=== PATIENT | male | born 1965 | race Caucasian/White ===

== ENCOUNTER 2018-02-11 09:44 | Emergency (ER) | payer MEDICAID ==
[2018-02-11] MEDS ORDERED: Ondansetron 4 MG/2 ML SDV IVPUSH ONE (09:51)
[2018-02-11] MEDS ORDERED: Sodium Chloride 0.9% 1,000 ML IV SCH (10:00)
[2018-02-11] MEDS: Ketorolac 30 MG/ML SDV IVPUSH ONE ×2 (10:09→10:11)
[2018-02-11] MEDS ORDERED: HYDROmorphone 1 MG/ML Syringe IVPUSH ONE (10:39)
--- NOTE | 2018-02-11 10:43 | EDM.PDOC ---
ED HPI GENERAL MEDICAL PROBLEM - General Chief Complaint: Genitourinary Problem Stated Complaint: KIDNEY PAIN Time Seen by Provider: 02/11/18 10:40 Source of Information: Reports: Patient History Limitations: Reports: No Limitations - History of Present Illness INITIAL COMMENTS - FREE TEXT/NARRATIVE: pt arrived with severe rt flank pain. He has had about 3 episodes in the last 3 days of severe flank pain. He feels like it is probably sitting just outside of the bladder. Onset: Today, Sudden Duration: Hour(s): Location: Reports: Abdomen, Other ( rt flank) Associated Symptoms: Reports: Nausea/Vomiting Right Flank Pain Score (Numeric/FACES): 10 - Related Data Allergies Allergy/AdvReac Type Severity Reaction Status Date / Time Penicillins Allergy Other Verified 03/20/16 10:58 Past Medical History Genitourinary History: Reports: Renal Calculus Social & Family History - Tobacco Use Smoking Status *Q: Unknown Ever Smoked ED ROS GENERAL - Review of Systems Review Of Systems: See Below Constitutional: Reports: No Symptoms HEENT: Reports: No Symptoms Respiratory: Reports: No Symptoms Cardiovascular: Reports: No Symptoms Endocrine: Reports: No Symptoms GI/Abdominal: Reports: Abdominal Pain : Reports: Flank Pain, Other (pt had a sudden onser of rt flank pain. ) Musculoskeletal: Reports: No Symptoms ED EXAM, RENAL/ - Physical Exam Exam: See Below Text/Narrative:: pt arrived with severe rt flank pain. He has a history of kidney stones. Exam Limited By: No Limitations General Appearance: Alert, Anxious, Severe Distress Ears: Normal TMs Nose: Normal Inspection Throat/Mouth: Normal Inspection Head: Atraumatic Neck: Normal Inspection Respiratory/Chest: No Respiratory Distress Cardiovascular: Regular Rate, Rhythm GI/Abdominal: Soft, Non-Tender (Male) Exam: Deferred Rectal (Males) Exam: Deferred Back Exam: CVA Tenderness (R) Extremities: Normal Inspection Neurological: Alert, Oriented, Normal Cognition Psychiatric: Anxious, Other (pt is very uncomfortable. ) Course - Vital Signs Last Recorded V/S: Last Vital Signs Temp 35.9 C 02/11/18 09:46 Pulse 64 02/11/18 09:46 Resp 18 02/11/18 09:46 BP 104/58 L 02/11/18 09:46 Pulse Ox 99 02/11/18 09:46 - Orders/Labs/Meds Labs: Laboratory Tests 02/11/18 02/11/18 Range/Units 10:01 10:01 WBC 10.6 (4.5-11.0) K/uL RBC 5.46 (4.30-5.90) M/uL Hgb 16.6 H (12.0-15.0) g/dL Hct 46.9 (40.0-54.0) % MCV 86 (80-98) fL MCH 30 (27-31) pg MCHC 35 (32-36) % Plt Count 354 (150-400) K/uL Neut % (Auto) 49 (36-66) % Lymph % (Auto) 38 (24-44) % Mckinley % (Auto) 10 H (2-6) % Eos % (Auto) 2 (2-4) % Baso % (Auto) 1 (0-1) % Sodium 141 (140-148) mmol/L Potassium 3.6 (3.6-5.2) mmol/L Chloride 106 (100-108) mmol/L Carbon Dioxide 20 L (21-32) mmol/L Anion Gap 18.6 H (5.0-14.0) mmol/L BUN 13 (7-18) mg/dL Creatinine 1.1 (0.8-1.3) mg/dL Est Cr Clr Drug Dosing 75.11 mL/min Estimated GFR (MDRD) > 60 (>60) Glucose 132 H (74-106) mg/dL Calcium 8.9 (8.5-10.1) mg/dL Total Bilirubin 0.5 (0.2-1.0) mg/dL AST 17 (15-37) U/L ALT 31 (12-78) U/L Alkaline Phosphatase 77 (46-116) U/L Total Protein 7.3 (6.4-8.2) g/dL Albumin 3.8 (3.4-5.0) g/dL Globulin 3.5 (2.3-3.5) g/dL Albumin/Globulin Ratio 1.1 L (1.2-2.2) Meds: Medications Discontinued Medications Generic Name Dose Route Start Last Admin Trade Name Freq PRN Reason Stop Dose Admin Hydromorphone HCl 1 mg 02/11/18 10:39 02/11/18 11:00 Dilaudid IVPUSH 02/11/18 10:40 1 mg ONETIME ONE Administration Sodium Chloride 1,000 mls @ 999 mls/hr 02/11/18 10:00 02/11/18 10:07 Normal Saline IV 999 mls/hr ASDIRECTED ANNA Administration Ketorolac Tromethamine 30 mg 02/11/18 09:51 02/11/18 10:11 Toradol IVPUSH 02/11/18 09:52 30 mg ONETIME ONE Administration Ondansetron HCl 4 mg 02/11/18 09:51 02/11/18 10:09 Zofran IVPUSH 02/11/18 09:52 4 mg ONETIME ONE Administration - Re-Assessments/Exams Free Text/Narrative Re-Assessment/Exam: 02/14/18 08:25 The cat scan showd a stone in the bladder. His pain was gone so it was assumed that his stone passed. Departure - Departure Time of Disposition: 12:08 Disposition: Home, Self-Care 01 Condition: Fair Clinical Impression: Ureteral calculus, right - Discharge Information Instructions: Kidney Stones, [id number] Referrals: PCP,None [Primary Care Provider] - Forms: ED Department Discharge Care Plan Goals: stone passed when in cat scan, push fluids. torodol 10 mg q6h as needed for pain #8
--- NOTE | 2018-02-11 11:17 | CT ---
CT abdomen and pelvis without contrast. Total DLP 684 Findings: Atelectasis within the lung bases. Scarring or atelectasis within the lingula. Liver within normal limits. Gallstones. Pancreas within normal limits. Spleen within normal limits. Hypodensity r ight kidney posteriorly up to 1 cm was evident on prior CT examination 12/08/2010. A simple cyst could be confirmed with ultrasound. Tiny punctate calyceal stone on the right. No definite hydronephrosis. There is inflammation about the right proximal ureter. Mild right hydroureter.. There is a stone with in the bladder measuring 3 mm. No obstructing radiopaque right renal stones. No hydronephrosis on the left. There is some fatty infiltration of the jones of the right-sided colon which could potentially suggest prior inflammation. Air-filled appendix on the right demonstrates no inflammation. No eviden ce for enlarged adenopathy. A few probable bone islands. Impression: 1. Mild right hydroureter and mild inflammation about the proximal right ureter. This is most suggest reece a recently passed stone which is within the bladder. If concern for infection correlate with urin alysis.
== END 2018-02-11 12:00 | disposition home or self-care (01) ==
LOC: JP.ED 09:44
DX: N20.1 Calculus of ureter (principal); Z88.0 Allergy status to penicillin
CPT/HCPCS: 36415; 74176; 80053; 85025; 96361; 96374; 96375; 99284; J1170; J1885; J2405; J7040

== ENCOUNTER 2018-04-29 03:27 | Emergency (ER) | payer MEDICAID ==
[2018-04-29] MEDS ORDERED: Proparacaine 0.5% Ophth Soln 15 ML Bottle ONE (03:34)
[2018-04-29] MEDS ORDERED: Ibuprofen 600 MG Tab PO ONE (04:04)
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
[2018-04-29] MEDS ORDERED: Proparacaine 0.5% Ophth Soln 15 ML Bottle EYEBOTH STA (04:11)
[2018-04-29] MEDS ORDERED: Proparacaine 0.5% Ophth Soln 15 ML Bottle EYEBOTH ONE (04:20)
== END 2018-04-29 04:23 | disposition home or self-care (01) ==
LOC: JP.ED 03:27
DX: H16.133 Photokeratitis, bilateral (principal); F17.210 Nicotine dependence, cigarettes, uncomplicated; Z88.5 Allergy status to narcotic agent; Z88.0 Allergy status to penicillin; Z79.899 Other long term (current) drug therapy; W89.0XXA Exposure to welding light (arc), initial encounter
CPT/HCPCS: 99283; A9270

== ENCOUNTER 2020-03-19 16:19 | Emergency (ER) | payer SELFPAY ==
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
== END 2020-03-19 17:02 | disposition home or self-care (01) ==
LOC: JP.ED 16:19
DX: R55 Syncope and collapse (principal); S80.212A Abrasion, left knee, initial encounter; Z88.5 Allergy status to narcotic agent; Z88.0 Allergy status to penicillin; Z79.899 Other long term (current) drug therapy; X58.XXXA Exposure to other specified factors, initial encounter
CPT/HCPCS: 99282; 99283

== ENCOUNTER 2023-01-18 14:26 | Emergency (ER) | payer MEDICAID ==
[2023-01-18] MEDS ORDERED: Acetaminophen/HYDROcodone 325-5 MG Tab PO ONE (15:06)
== END 2023-01-18 15:52 | disposition home or self-care (01) ==
LOC: JP.ED 14:26
DX: S40.011A Contusion of right shoulder, initial encounter (principal); M25.511 Pain in right shoulder; Z88.5 Allergy status to narcotic agent; Z88.0 Allergy status to penicillin; Z72.0 Tobacco use; W18.30XA Fall on same level, unspecified, initial encounter
CPT/HCPCS: 73010; 73030; 99283; A9270

== ENCOUNTER 2023-06-02 13:40 | Emergency (ER) | payer SELFPAY ==
[2023-06-02 14:03] LABS: HEMATOCRIT 47.1 % (38.4-49.7); HEMOGLOBIN 16.5 g/dL (12.9-16.9); MEAN CORPUSCULAR HEMOGLOBIN 30.4 pg (31.6-35.5); MEAN CORPUSCULAR VOLUME 86.9 fL (81.4-99.0); RED BLOOD CELL COUNT 5.42 M/uL (4.14-5.76); WHITE BLOOD CELL COUNT,WBC 9.6 K/uL (3.2-11.0)
[2023-06-02 14:19] LABS: PROTHROMBIN TIME 10.6 sec (9.2-10.6)
[2023-06-02 14:29] LABS: A/G RATIO 1.1 (1.2-2.2); ALANINE AMINOTRANSFERASE,ALT 47 U/L (12-78); ALBUMIN 3.8 g/dL (3.4-5.0); ALKALINE PHOSPHATASE 85 U/L (46-116); ASPARTATE AMNIOTRANSFERASE,AST 18 U/L (15-37); BILIRUBIN TOTAL 0.8 mg/dL (0.2-1.0); BLOOD UREA NITROGEN,BUN 13 mg/dL (7-18); CALCIUM 9.4 mg/dL (8.5-10.1); CARBON DIOXIDE,CO2 26 mmol/L (21-32); CHLORIDE,CL 103 mmol/L (100-108); CREATININE 1.2 mg/dL (0.8-1.3); EST CRCL DRUG DOSING (CG) 65.79 mL/min; ESTIMATED GFR 72 mL/min (>60); GLUCOSE RANDOM 90 mg/dL (74-106); POTASSIUM,K 4.2 mmol/L (3.6-5.2); PRO B-TYPE NATRIUR PEPT,BNPPRO 48 pg/mL (5-125); PROTEIN TOTAL,TP 7.3 g/dL (6.4-8.2); SODIUM,NA 138 mmol/L (140-148)
[2023-06-02 14:31] LABS: ANION GAP 13.2 mmol/L (5.0-14.0); TROPONIN I HIGH SENSITIVITY < 4.0 pg/mL (<=60.3)
[2023-06-02] MEDS ORDERED: HYDROmorphone 0.5 MG/0.5 ML Syringe IVPUSH ONE (14:31)
[2023-06-02] MEDS ORDERED: Sodium Chloride 0.9% 1,000 ML IV SCH (14:45)
== END 2023-06-02 14:49 | disposition left against medical advice (07) ==
LOC: EDBD → MERGE 13:40 → JP.ED 13:40
DX: R07.9 Chest pain, unspecified (principal); F17.210 Nicotine dependence, cigarettes, uncomplicated; Z88.5 Allergy status to narcotic agent; Z88.0 Allergy status to penicillin
CPT/HCPCS: 36415; 80053; 83605; 83690; 83880; 84484; 85027; 85379; 85610; 99285

== ENCOUNTER 2023-10-23 17:21 | Emergency (ER) | payer MEDICAID ==
[2023-10-23] MEDS: Sodium Chloride 0.9% 1,000 ML IV SCH ×2 (17:30→19:05)
[2023-10-23 17:45] LABS: BASOPHILS PERCENT AUTO 1.4 % (0.1-1.3); EOSINOPHILS ABSOLUTE AUTO 0.24 K/uL (0.00-0.40); EOSINOPHILS PERCENT AUTO 3.2 % (0.0-5.4); HEMATOCRIT 38.9 % (38.4-49.7); IMMATURE GRAN PERCENT AUTO 0.1 % (0.0-0.7); LYMPHOCYTES ABSOLUTE AUTO 3.32 K/uL (0.8-3.3); LYMPHOCYTES PERCENT AUTO 44.9 % (11.4-47.7); MEAN CORPUSCULAR HEMOGLOBIN 29.8 pg (31.6-35.5); MEAN CORPUSCULAR HGB CONC 33.4 g/dL (31.6-35.5); MEAN CORPUSCULAR VOLUME 89.2 fL (81.4-99.0); MONOCYTES ABSOLUTE AUTO 0.74 K/uL (0.20-0.90); NEUTROPHILS ABSOLUTE AUTO 2.99 K/uL (1.0-7.6); NEUTROPHILS PERCENT AUTO 40.4 % (40.0-78.1); PLATELET COUNT,PLT 247 K/uL (130-375); RED BLOOD CELL COUNT 4.36 M/uL (4.14-5.76); WHITE BLOOD CELL COUNT,WBC 7.4 K/uL (3.2-11.0)
[2023-10-23 17:46] LABS: IMMATURE GRAN ABSOLUTE AUTO 0.01 K/uL (0.00-0.23)
[2023-10-23 18:14] LABS: A/G RATIO 1.2 (1.2-2.2); ALANINE AMINOTRANSFERASE,ALT 33 U/L (12-78); ALBUMIN 3.2 g/dL (3.4-5.0); ALKALINE PHOSPHATASE 59 U/L (46-116); ANION GAP 12.1 mmol/L (5.0-14.0); ASPARTATE AMNIOTRANSFERASE,AST 17 U/L (15-37); BILIRUBIN TOTAL 0.2 mg/dL (0.2-1.0); BLOOD UREA NITROGEN,BUN 16 mg/dL (7-18); CALCIUM 7.9 mg/dL (8.5-10.1); CARBON DIOXIDE,CO2 23 mmol/L (21-32); CHLORIDE,CL 106 mmol/L (100-108); CREATININE 1.3 mg/dL (0.8-1.3); EST CRCL DRUG DOSING (CG) 60.03 mL/min; ESTIMATED GFR 65 mL/min (>60); GLUCOSE RANDOM 119 mg/dL (74-106); POTASSIUM,K 3.6 mmol/L (3.6-5.2); PROTEIN TOTAL,TP 5.9 g/dL (6.4-8.2); SODIUM,NA 141 mmol/L (140-148)
[2023-10-23] MEDS ORDERED: fentaNYL 100 MCG/2 ML SDV IVPUSH ONE (18:24)
[2023-10-23] MEDS ORDERED: HYDROmorphone 1 MG/ML Syringe IVPUSH ONE (18:41)
[2023-10-23] MEDS ORDERED: Sodium Chloride 0.9% 1,000 ML IV SCH (19:00)
[2023-10-23] MEDS ORDERED: Propofol 200 MG/20 ML SDV IVPUSH ONE (19:20)
[2023-10-23] MEDS ORDERED: Propofol 200 MG/20 ML SDV ONE (19:26)
== END 2023-10-24 05:11 | disposition home or self-care (01) ==
LOC: JP.ED 17:21
DX: S43.005A Unspecified dislocation of left shoulder joint, initial encounter (principal); R56.9 Unspecified convulsions; R55 Syncope and collapse; Z79.899 Other long term (current) drug therapy; Z88.0 Allergy status to penicillin; Z88.5 Allergy status to narcotic agent; X58.XXXA Exposure to other specified factors, initial encounter
CPT/HCPCS: 23650; 36415; 70450; 73020; 73030; 80053; 80307; 83605; 85025; 96361; 96374; 96375; 99284; 99285; J1170; J2704; J3010; J7030

== ENCOUNTER 2023-10-29 08:01 | Day surgery (SDC) | payer MEDICAID ==
[~2023-10-29 08:01] MED LIST: Bupivacaine 0.5% 50 ML MDV ONE; Dexamethasone 4 MG/ML SDV ONE; Glycopyrrolate 0.2 MG/ML 5 ML MDV ONE; Lactated Ringers 1,000 ML IV SCH; Neostigmine Methylsulfate 10 MG/10 ML MDV ONE; Nozin Nasal Sanitizer NASBOTH ONE; Ondansetron 4 MG/2 ML SDV ONE; Propofol 200 MG/20 ML SDV ONE; Rocuronium 50 MG/5 ML Vial ONE; Succinylcholine 200 MG/10 ML MDV ONE; fentaNYL 250 MCG/5 ML SDV ONE
[2023-10-29] MEDS ORDERED: ceFAZolin 2 GM in Premix Bag 1 BAG IV ONE (08:30)
[2023-10-29 08:44] LABS: A/G RATIO 0.9 (1.2-2.2); ALANINE AMINOTRANSFERASE,ALT 45 U/L (12-78); ALBUMIN 3.4 g/dL (3.4-5.0); ALKALINE PHOSPHATASE 90 U/L (46-116); ASPARTATE AMNIOTRANSFERASE,AST 23 U/L (15-37); BILIRUBIN TOTAL 0.4 mg/dL (0.2-1.0); BLOOD UREA NITROGEN,BUN 15 mg/dL (7-18); CALCIUM 8.8 mg/dL (8.5-10.1); CARBON DIOXIDE,CO2 28 mmol/L (21-32); CHLORIDE,CL 102 mmol/L (100-108); CREATININE 0.9 mg/dL (0.8-1.3); EST CRCL DRUG DOSING (CG) 86.71 mL/min; ESTIMATED GFR 101 mL/min (>60); GLUCOSE RANDOM 94 mg/dL (74-106); POTASSIUM,K 4.1 mmol/L (3.6-5.2); SODIUM,NA 136 mmol/L (140-148)
[2023-10-29 08:46] LABS: ANION GAP 10.1 mmol/L (5.0-14.0)
[2023-10-29] MEDS ORDERED: ePHEDrine 50 MG/ML SDV ONE (09:58)
[2023-10-29] MEDS ORDERED: Sodium Chloride 0.9% 10 ML ONE ×2 (09:58→10:16)
[2023-10-29] MEDS ORDERED: Rocuronium 50 MG/5 ML Vial ONE (10:12)
[2023-10-29] MEDS ORDERED: Phenylephrine 1% 10 MG/ML SDV ONE (10:16)
[2023-10-29] MEDS ORDERED: fentaNYL 100 MCG/2 ML SDV ONE (11:16)
[2023-10-29] MEDS ORDERED: Acetaminophen/oxyCODONE 325-5 MG Tab PO PRN (12:30)
[2023-10-29] MEDS ORDERED: Ketorolac 30 MG/ML SDV IM ONE (12:45)
== END 2023-10-29 13:55 | disposition home or self-care (01) ==
LOC: JP.SDS 08:01
PROVIDERS: ATTEND Specialist
DX: S42.252A Displaced fracture of greater tuberosity of left humerus, initial encounter for closed fracture (principal); F32.A Depression, unspecified; Z88.5 Allergy status to narcotic agent; Z88.8 Allergy status to other drugs, medicaments and biological substances; X58.XXXA Exposure to other specified factors, initial encounter
CPT/HCPCS: 36415; 73020-26-LT; 73020-LT; 80053; A9270-GY; C1713; C1776; J0330; J0690; J1100; J1885; J2371; J2405; J2704; J2710; J3010; J3490; J7120

== ENCOUNTER 2024-06-30 06:14 | Emergency (ER) | payer MEDICAID ==
[2024-06-30 06:34] LABS: BASOPHILS ABSOLUTE AUTO 0.08 K/uL (0.00-0.10); EOSINOPHILS ABSOLUTE AUTO 0.17 K/uL (0.00-0.40); EOSINOPHILS PERCENT AUTO 2.2 % (0.0-5.4); HEMATOCRIT 41.4 % (38.4-49.7); HEMOGLOBIN 14.7 g/dL (12.9-16.9); IMMATURE GRAN PERCENT AUTO 0.3 % (0.0-0.7); LYMPHOCYTES ABSOLUTE AUTO 3.23 K/uL (0.8-3.3); LYMPHOCYTES PERCENT AUTO 42.2 % (11.4-47.7); MEAN CORPUSCULAR HEMOGLOBIN 30.6 pg (31.6-35.5); MEAN CORPUSCULAR HGB CONC 35.5 g/dL (31.6-35.5); MEAN CORPUSCULAR VOLUME 86.1 fL (81.4-99.0); MONOCYTES ABSOLUTE AUTO 0.74 K/uL (0.20-0.90); MONOCYTES PERCENT AUTO 9.7 % (3.3-12.6); NEUTROPHILS ABSOLUTE AUTO 3.42 K/uL (1.0-7.6); NEUTROPHILS PERCENT AUTO 44.6 % (40.0-78.1); PLATELET COUNT,PLT 257 K/uL (130-375); RED BLOOD CELL COUNT 4.81 M/uL (4.14-5.76); WHITE BLOOD CELL COUNT,WBC 7.7 K/uL (3.2-11.0)
[2024-06-30 06:37] LABS: IMMATURE GRAN ABSOLUTE AUTO 0.02 K/uL (0.00-0.23)
[2024-06-30] MEDS: Sodium Chloride 0.9% 1,000 ML IV SCH (06:40)
[2024-06-30] MEDS: Ketorolac 30 MG/ML SDV IVPUSH ONE (06:40)
[2024-06-30 06:48] LABS: CALCIUM 9.4 mg/dL (8.5-10.1); CREATININE 1.1 mg/dL (0.8-1.3); EST CRCL DRUG DOSING (CG) 70.11 mL/min; POTASSIUM,K 3.4 mmol/L (3.6-5.2)
[2024-06-30 06:50] LABS: ANION GAP 13.4 mmol/L (5.0-14.0)
[2024-06-30] MEDS ORDERED: Naloxone 0.4 MG/ML SDV IVPUSH PRN (07:00)
[2024-06-30] MEDS: HYDROmorphone 0.5 MG/0.5 ML Syringe IVPUSH ONE (07:07)
== END 2024-06-30 09:06 | disposition home or self-care (01) ==
LOC: JP.ED 06:14
DX: N13.2 Hydronephrosis with renal and ureteral calculous obstruction (principal); Z79.899 Other long term (current) drug therapy; Z88.0 Allergy status to penicillin; Z88.5 Allergy status to narcotic agent; Z91.030 Bee allergy status
CPT/HCPCS: 36415; 74176; 80048; 85025; 96361; 96374; 96375; 99284; J1170; J1885; J7030